=== PATIENT | female | born 1995 | race Two or more races ===

== ENCOUNTER 2018-01-26 13:58 | Emergency (ER) | payer SELFPAY ==
[2018-01-26] MEDS ORDERED: AMOXICILLIN TRIHYDRATE 500 MG CAPSULE PO ONE (15:28)
--- NOTE | 2018-01-26 15:32 | ER Document Report ---
HPI - HPI Patient complains to provider of: r ear pain Onset: Other - 4 days Onset/Duration: Persistent Quality of pain: Achy Pain Level: 3 Context: Patient presents complaining of right ear pain for the past 4 days. Patient does report that she recently had an upper respiratory infection. Patient denies any fever. No drainage from her ear. Associated Symptoms: Earache. denies: Fever Exacerbated by: Denies Relieved by: Denies Similar symptoms previously: Yes Recently seen / treated by doctor: No - ROS ROS below otherwise negative: Yes Systems Reviewed and Negative: Yes All other systems reviewed and negative - CONSTITUTIONAL Constitutional: DENIES: Fever, Chills - EENT EENT: REPORTS: Ear Pain - bilateral - RESPIRATORY Respiratory: DENIES: Coughing - GASTROINTESTINAL Gastrointestinal: DENIES: Nausea, Patient vomiting - DERM Skin Color: Normal Skin Problems: None Past Medical History - General Information source: Patient - Social History Smoking Status: Never Smoker Frequency of alcohol use: None Drug Abuse: None Occupation: None Lives with: Family Family History: Reviewed & Not Pertinent Patient has suicidal ideation: No Patient has homicidal ideation: No EENT Medical History: 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 IN LAST 30 DAYS: No - HEENT HEENT: Atraumatic, Normocephalic, Tympanic Membrane Red - left, Tympanic Membrane Bulging - left. negative: Pharyngeal Exudate, Pharyngeal Tenderness, Pharyngeal Erythema - NECK Neck: Normal Inspection, Supple. negative: Lymphadenopathy-Left, Lymphadenopathy-Right - RESPIRATORY Respiratory: Breath Sounds Normal, No Respiratory Distress - CARDIOVASCULAR Cardiovascular: Regular Rate, Regular Rhythm, No Murmur - BACK Back: Normal Inspection - MUSCULOSKELETAL/EXTREMETIES Musculoskeletal/Extremeties: JACQUES BARNHART - NEURO Level of Consciousness: Awake, Alert, Appropriate Motor/Sensory: No Motor Deficit - DERM Integumentary: Warm, Dry, No Rash Course - Vital Signs Vital signs: Temp Pulse Resp BP Pulse Ox 99.0 F 66 20 117/64 97 01/26/18 14:06 01/26/18 14:06 01/26/18 14:06 01/26/18 14:06 01/26/18 14:06 Discharge - Discharge Clinical Impression: Otitis media Qualifiers: Otitis media type: unspecified Chronicity: acute Qualified Code(s): H66.90 - Otitis media, unspecified, unspecified ear Condition: Stable Disposition: HOME, SELF-CARE Instructions: Amoxicillin ([facility]), Otitis Media ([facility]) Additional Instructions: Return immediately for any new or worsening symptoms Followup with your primary care provider, call tomorrow to make a followup appointment Prescriptions: Amoxicillin 500 mg PO TID #30 tablet Naproxen [Naprosyn 250 Nmg Tablet] 1 tab PO BID #14 tablet Referrals: [facility] [Provider Group] - Follow up as needed [facility] [Provider Group] - Follow up as needed
[2018-01-26 16:03] VITALS: BP 116/54
== END 2018-01-26 16:12 | disposition home or self-care (01) ==
LOC: ER 13:58
DX: H66.90 Otitis media, unspecified, unspecified ear (principal); Z98.890 Other specified postprocedural states
CPT/HCPCS: 99282

== ENCOUNTER 2018-01-28 20:11 | Emergency (ER) | payer SELFPAY ==
[2018-01-28 20:19] VITALS: BP 108/62
--- NOTE | 2018-01-28 20:57 | ER Document Report ---
ED General - General Chief Complaint: Ear Pain Stated Complaint: EAR PAIN Time Seen by Provider: 01/28/18 20:31 Notes: Patient is a 22-year-old female without chronic medical problems who presents with ongoing decreased hearing out of her left ear as well as fullness to the left ear. The patient was seen in the emergency room 2 days ago, diagnosed with right-sided otitis media but notes that despite taking antibiotics and naproxen her symptoms to the left ear have not improved. She states this did start after she came back from [place] on a flight. She states that it is a dull, throbbing, constant discomfort to the left ear. Nothing improves or worsens her pain. She denies history of similar symptoms in the past. She has not yet followed up with her primary care doctor. She denies anything is new or different about her symptoms today other than that they have failed to resolve. TRAVEL OUTSIDE OF THE [place] IN LAST 30 DAYS: Yes COUNTRY TRAVELED TO/FROM: [facility] - Related Data Allergies/Adverse Reactions: No Known Allergies Allergy (Unverified 01/26/18 14:00) Past Medical History - General Information source: Patient - Social History Smoking Status: Never Smoker Chew tobacco use (# tins/day): No Frequency of alcohol use: None Drug Abuse: None Lives with: Spouse/Significant other Family History: Reviewed & Not Pertinent Patient has suicidal ideation: No Patient has homicidal ideation: No Renal/ Medical History: Denies: Hx Peritoneal Dialysis Past Surgical History: Reports: Other - ear Review of Systems - Review of Systems Notes: Constitutional: Negative for fever. HENT: Positive for left ear fullness and hearing loss. Eyes: Negative for visual changes. Cardiovascular: Negative for chest pain. Respiratory: Negative for shortness of breath. Gastrointestinal: Negative for abdominal pain, vomiting or diarrhea. Genitourinary: Negative for dysuria. Musculoskeletal: Negative for back pain. Skin: Negative for rash. Neurological: Negative for headaches, weakness or numbness. 10 point ROS negative except as marked above and in HPI. Physical Exam - Vital signs Vitals: Temp Pulse Resp BP Pulse Ox 98.5 F 71 18 108/62 98 01/28/18 20:18 01/28/18 20:18 01/28/18 20:18 01/28/18 20:18 01/28/18 20:18 Interpretation: Normal Notes: PHYSICAL EXAMINATION: GENERAL: Well-appearing, well-nourished and in no acute distress. HEAD: Atraumatic, normocephalic. EYES: Pupils equal round and reactive to light, extraocular movements intact, sclera anicteric, conjunctiva are normal. ENT: nares patent, oropharynx clear without exudates. Right TM with purulent drainage and left TM is clear without any bulging or erythema. Moist mucous membranes. NECK: Normal range of motion, supple without lymphadenopathy LUNGS: Breath sounds clear to auscultation bilaterally and equal. No wheezes rales or rhonchi. HEART: Regular rate and rhythm without murmurs ABDOMEN: Soft, nontender, normoactive bowel sounds. No guarding, no rebound. No masses appreciated. EXTREMITIES: Normal range of motion, no pitting or edema. No cyanosis. NEUROLOGICAL: No focal neurological deficits. Moves all extremities spontaneously and on command. PSYCH: Normal mood, normal affect. SKIN: Warm, Dry, normal turgor, no rashes or lesions noted. Course - Re-evaluation Re-evalutation: 01/28/18 20:57 Patient presents with ongoing left ear discomfort and fullness as well as hearing loss. She continues to have an obvious right otitis media but states that the site is actually not uncomfortable as only her left side. There is no evidence of tympanic rupture, infection or mastoiditis on examination. She is otherwise extremely well in appearance. Suspect that her symptoms are likely secondary to pressure during her most recent flight and should resolve over time. I have examined this patient that it is likely secondary to her recent transatlantic flight and that if she is not having improvement within the next several days she will need follow-up with ENT. At this time will discharge with return precautions and follow-up recommendations. Verbal discharge instructions given a the bedside and opportunity for questions given. Medication warnings reviewed. Patient is in agreement with this plan and has verbalized understanding of return precautions and the need for primary care follow-up in the next 24-72 hours. - Vital Signs Vital signs: Temp Pulse Resp BP Pulse Ox 98.5 F 71 18 108/62 98 01/28/18 20:18 01/28/18 20:18 01/28/18 20:18 01/28/18 20:18 01/28/18 20:18 Discharge - Discharge Clinical Impression: Left ear pain Otitis media Qualifiers: Otitis media type: suppurative Chronicity: acute Laterality: right Recurrence: recurrent Spontaneous tympanic membrane rupture: without spontaneous rupture Qualified Code(s): H66.004 - Acute suppurative otitis media without spontaneous rupture of ear drum, recurrent, right ear Additional Instructions: Your left ear pain and loss of hearing is likely secondary to the pressure that he sustained while on a plane flight back to [place]. This should hopefully resolve in the next several days. Continue to take the antibiotics that were prescribed on your most recent visit as he still having infection in your right ear. If you are not having resolution of your hearing loss and fullness of the left ear in the next 3-4 days I would encourage you to follow-up with an ear nose and throat physician. Return for any additional concerns you may have. Referrals: MARLEY BRAY, [ASSOCIATE] - Follow up as needed
== END 2018-01-28 21:06 | disposition home or self-care (01) ==
LOC: ER 20:11
DX: H92.02 Otalgia, left ear (principal); H91.92 Unspecified hearing loss, left ear; H66.004 Acute suppurative otitis media without spontaneous rupture of ear drum, recurrent, right ear
CPT/HCPCS: 99282

== ENCOUNTER 2018-02-12 00:48 | Emergency (ER) | payer SELFPAY ==
[2018-02-12 00:56] VITALS: BP 120/70
[2018-02-12] MEDS ORDERED: IBUPROFEN 600 MG TABLET PO ONE (02:23)
[2018-02-12] MEDS ORDERED: CIPROFLOXACIN HCL/DEXAMETH OTIC DROP 7.5 ML AD ONE (02:23)
[2018-02-12] MEDS ORDERED: ACETAMINOPHEN 325 MG TABLET PO ONE (02:23)
[2018-02-12] MEDS ORDERED: AMOXICILLIN TRIHYDRATE 500 MG CAPSULE PO ONE (02:23)
[2018-02-12] MEDS ORDERED: TRAMADOL HCL 50 MG TABLET PO ONE (02:24)
--- NOTE | 2018-02-12 02:26 | ER Document Report ---
ED General - General Chief Complaint: Ear Pain Stated Complaint: SORE THROAT/EAR PAIN Time Seen by Provider: 02/12/18 01:41 Notes: Patient is a 22-year-old female without chronic medical problems seen several weeks ago for a right sided ear infection with associated pain who presents with 3-4 days of progressively worsening pain to the right ear as well as drainage of pus from the right ear. Patient describes a dull, throbbing, constant pain to the right ear with associated pain over the right maxillary sinus and the her throat. She states that she has been taking amoxicillin that was prescribed without any improvement of her symptoms. Nothing worsens her symptoms. She has not followed up with her general doctor regarding today's concerns. She denies any headache, weakness, numbness, confusion or constitutional symptoms. No fever. TRAVEL OUTSIDE OF THE [place] IN LAST 30 DAYS: No COUNTRY TRAVELED TO/FROM: [facility] - Related Data Allergies/Adverse Reactions: No Known Allergies Allergy (Verified 02/12/18 00:51) Past Medical History - General Information source: Patient - Social History Smoking Status: Never Smoker Frequency of alcohol use: None Drug Abuse: None Lives with: Spouse/Significant other Family History: Reviewed & Not Pertinent Renal/ Medical History: Denies: Hx Peritoneal Dialysis Past Surgical History: Reports: Other - ear Review of Systems - Review of Systems Notes: Constitutional: Negative for fever. HENT: Positive for right ear pain and drainage Eyes: Negative for visual changes. Cardiovascular: Negative for chest pain. Respiratory: Negative for shortness of breath. Gastrointestinal: Negative for abdominal pain, vomiting or diarrhea. Genitourinary: Negative for dysuria. Musculoskeletal: Negative for back pain. Skin: Negative for rash. Neurological: Negative for headaches, weakness or numbness. 10 point ROS negative except as marked above and in HPI. Physical Exam - Vital signs Vitals: Temp Pulse Resp BP Pulse Ox 99.2 F 65 16 120/70 99 02/12/18 00:55 02/12/18 00:55 02/12/18 00:55 02/12/18 00:55 02/12/18 00:55 Interpretation: Normal Notes: PHYSICAL EXAMINATION: GENERAL: Well-appearing, well-nourished and in no acute distress. HEAD: Atraumatic, normocephalic. EYES: Pupils equal round and reactive to light, extraocular movements intact, sclera anicteric, conjunctiva are normal. ENT: nares patent, oropharynx clear without exudates. The right ear is draining yellowish fluid. There is erythema to the external ear canal. TM is bulging with a purulent effusion. Left TM clear NECK: Normal range of motion, supple without lymphadenopathy LUNGS: Breath sounds clear to auscultation bilaterally and equal. No wheezes rales or rhonchi. HEART: Regular rate and rhythm without murmurs ABDOMEN: Soft, nontender, normoactive bowel sounds. No guarding, no rebound. No masses appreciated. EXTREMITIES: Normal range of motion, no pitting or edema. No cyanosis. NEUROLOGICAL: No focal neurological deficits. Moves all extremities spontaneously and on command. PSYCH: Normal mood, normal affect. SKIN: Warm, Dry, normal turgor, no rashes or lesions noted. Course - Re-evaluation Re-evalutation: 02/12/18 02:54 Presentation is most consistent with an acute otitis media with associated otitis externa. Clinical history as well as exam is most consistent with this diagnosis. Based on history and examination do not suspect an acute meningitis , encephalitis, peritonsillar abscess, or retropharyngeal abscess. Patient is otherwise well in appearance, no acute distress. Vitals otherwise within normal limits. The patient will be started on Augmentin twice daily for 10 days as well as Ciprodex drops. At this time will discharge with return precautions and follow-up recommendations. Verbal discharge instructions given a the bedside to the parents and opportunity for questions given. Medication warnings reviewed. Patient is in agreement with this plan and has verbalized understanding of return precautions and the need for primary care follow-up in the next 24-72 hours. - Vital Signs Vital signs: Temp Pulse Resp BP Pulse Ox 99.2 F 65 16 120/70 99 02/12/18 00:55 02/12/18 00:55 02/12/18 00:55 02/12/18 00:55 02/12/18 00:55 Discharge - Discharge Clinical Impression: Right otitis externa Qualifiers: Otitis externa type: other infective Chronicity: acute Qualified Code(s): H60.391 - Other infective otitis externa, right ear Right otitis media Qualifiers: Otitis media type: suppurative Chronicity: acute Recurrence: recurrent Spontaneous tympanic membrane rupture: without spontaneous rupture Qualified Code(s): H66.004 - Acute suppurative otitis media without spontaneous rupture of ear drum, recurrent, right ear Condition: Good Disposition: HOME, SELF-CARE Additional Instructions: You were seen today for ear pain and have an acute ear infection. Please take the antibiotic that has been prescribed until it is completed even if you are feeling better before you have finished all the antibiotics. Please also insert 3 drops of the eardrops that you were given today anterior ear 3 times daily for the next 7 days. For your pain: Take ibuprofen 600 mg and acetaminophen 1000 mg every 6 hours together as needed for pain. You may use the tramadol that has been prescribed for pain not controlled by Tylenol and ibuprofen. Return if you have worsening of your pain, loss of hearing in the affected ear, worsening facial pain, headaches, pass out, or any other symptoms that are worrisome to you. Prescriptions: Amox Tr/Potassium Clavulanate [Augmentin 875-125 Tablet] 1 tab PO BID 10 Days tablet Tramadol HCl 50 mg PO Q6H PRN #10 tablet PRN Reason: Severe Pain
[2018-02-12] MEDS ORDERED: AMOXICILLIN TR/POT CLAVULANATE 500-125 MG TAB PO ONE (02:27)
== END 2018-02-12 02:40 | disposition home or self-care (01) ==
LOC: ER 00:48
DX: H60.391 Other infective otitis externa, right ear (principal); H66.004 Acute suppurative otitis media without spontaneous rupture of ear drum, recurrent, right ear; J34.89 Other specified disorders of nose and nasal sinuses; J02.9 Acute pharyngitis, unspecified
CPT/HCPCS: 99282; J3490

== ENCOUNTER 2018-11-16 21:51 | Inpatient (IN) | payer MEDICAID ==
[2018-11-16] MEDS ORDERED: DINOPROSTONE 10 MG VAGINAL INSERT.SR PV ONE (22:12)
[2018-11-16] MEDS ORDERED: ACETAMINOPHEN 325 MG TABLET PO PRN (22:12)
[2018-11-16] MEDS ORDERED: RINGERS SOLUTION,LACTATED 300 ML IV ONE (22:12)
[2018-11-16] MEDS ORDERED: MAG HYDROX/AL HYDROX/SIMETH SUSP 30 ML UDCUP PO PRN (22:12)
[2018-11-16] MEDS ORDERED: ZOLPIDEM TARTRATE 5 MG TABLET PO PRN (22:12)
[2018-11-16] MEDS ORDERED: RINGERS SOLUTION,LACTATED 1,000 ML IV PRN (22:12)
[2018-11-16] MEDS ORDERED: ZOLPIDEM TARTRATE 5 MG TABLET ONE (22:53)
[2018-11-16] MEDS ORDERED: DINOPROSTONE 10 MG VAGINAL INSERT.SR ONE (22:53)
[2018-11-16 22:58] LABS: ABSOLUTE LYMPHOCYTES (AUTO) 1.5 10^3/uL (0.5-4.7); ABSOLUTE MONOCYTES (AUTO) 0.5 10^3/uL (0.1-1.4); ABSOLUTE NEUT (AUTO) 5.9 10^3/uL (1.7-8.2); BASOPHILS % (AUTO) 0.5 % (0-2); EOSINOPHILS % (AUTO) 0.5 % (0-6); HEMATOCRIT 29.3 % (36.0-47.0); HEMOGLOBIN 9.7 g/dL (12.0-15.5); MEAN CORPUSCULAR HEMOGLOBIN 25.5 pg (27.0-33.4); MEAN CORPUSCULAR VOLUME 77 fl (80-97); MONOCYTES % (AUTO) 6.7 % (3-13); PLATELET COUNT 274 10^3/uL (150-450); RED BLOOD COUNT 3.79 10^6/uL (3.72-5.28); RED CELL DISTRIBUTION WIDTH 13.2 % (11.5-14.0); SEGMENTED NEUTROPHILS % (AUTO) 73.3 % (42-78); TOTAL CELLS COUNTED % (AUTO) 100 %
[2018-11-16 23:01] LABS: APPEARANCE,URINE SLIGHTLY-CLOUDY; BILIRUBIN,URINE NEGATIVE (NEGATIVE); COLOR,URINE YELLOW; GLUCOSE, URINE NEGATIVE (NEGATIVE); KETONES,URINE TRACE mg/dL (NEGATIVE); LEUKOCYTE ESTERASE,URINE TRACE (NEGATIVE); NITRITE,URINE NEGATIVE (NEGATIVE); PROTEIN,URINE 30 mg/dL (NEGATIVE); URINE SPECIFIC GRAVITY 1.024; UROBILINOGEN,URINE NEGATIVE mg/dL (<2.0)
[2018-11-16] MEDS ORDERED: ZOLPIDEM TARTRATE 5 MG TABLET PO ONE (23:02)
[2018-11-16] MEDS ORDERED: URSODIOL 300 MG CAPSULE PO ONE (23:15)
[2018-11-16 23:17] LABS: URINE AMPHETAMINES SCREEN NEGATIVE; URINE BARBITURATES SCREEN NEGATIVE; URINE BENZODIAZEPINES SCREEN NEGATIVE; URINE COCAINE SCREEN NEGATIVE; URINE MARIJUANA (THC) SCREEN NEGATIVE; URINE METHADONE SCREEN NEGATIVE; URINE PHENCYCLIDINE SCREEN NEGATIVE
--- NOTE | 2018-11-17 00:25 | Admission Physical ---
Datetime Report Generated by CPN: 11/17/2018 00:25 CURRENT ADMISSION Chief Complaint: Scheduled Induction of Labor Indication for Induction: Other Indication for Induction- Other: Cholestasis Admit Impression : , Intrauterine Admit Plan: Admit to Unit; Initiate Labor Induction Protocol ALLERGIES Medication Allergies: No Medication Allergies: No Known Allergies (11/16/2018) Latex: No Latex Allergies OBSTETRICAL HISTORY EDC: 12/15/2018 00:00 : 2 Para: 1 Term: 1 Livin Gestational Diabetes: No Rh Sensitization: No Incompetent Cervix: No ETTA: No Infertility: No ART Treatment: No Uterine Anomaly: No IUGR: No Hx Previous C/S: No Macrosomia: No Hx Loss/Stillborn: No PIH: No Hx : No Placenta Previa/Abruption: No Depression/PP Depression: No PTL/PROM: No Post Hemorrhage: No SEE RECORDS Alcohol: No Marijuana : No Cocaine: No Other Illicit Drugs: No Cigarettes: Never Smoker. 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14 INFECTIOUS HISTORY Gonorrhea: No Genital Herpes: No Chlamydia: No Tuberculosis: No Syphilis: No Hepatitis: No HIV/AIDS Exposure: No Rash or Viral Illness: No HPV: No PHYSICAL EXAM General: Normal HEENT: Normal Neurologic: Normal Thyroid: Normal Heart: Normal Lungs: Normal Breast: Normal Back: Normal Abdomen: Normal Genitourinary Exam: Normal Extremities: Normal DTRs: Normal Pelvic Type: Adequate Vital Signs: Reviewed; Within Normal Limits VAGINAL EXAM Dilatation: 1 Effacement: 50 Station: ballotable Contraction Comments: irregular MEMBRANES Membranes: Intact FETUS A EGA: 36.0 Monitoring: External US FHR- Baseline: 120s Variability: Moderate 6-25bpm Accelerations: 15X15 Decelerations: None FHR Category: Category I Admit Comment: Pt has cholestasis of ; GBS status pending--will give prophylaxsis if no results by morning PLANS FOR LABOR AND DELIVERY Labor and Delivery: None Pain Management: Medications; Epidural Feeding Preference: Formula Benefit of Breast Feed Discussed: Yes Circumcision: N/A INFORMED CONSENT Signature: with User ID: [email or web address]
[2018-11-17] MEDS: URSODIOL 300 MG CAPSULE PO SCH ×2 (09:14→18:08)
[2018-11-17 11:54] LABS: ABSOLUTE EOSINOPHILS # (AUTO) 0.1 10^3/uL (0.0-0.6); ABSOLUTE LYMPHOCYTES (AUTO) 1.5 10^3/uL (0.5-4.7); ABSOLUTE MONOCYTES (AUTO) 0.4 10^3/uL (0.1-1.4); ABSOLUTE NEUT (AUTO) 4.9 10^3/uL (1.7-8.2); BASOPHILS % (AUTO) 0.4 % (0-2); EOSINOPHILS % (AUTO) 0.9 % (0-6); HEMATOCRIT 29.8 % (36.0-47.0); HEMOGLOBIN 9.8 g/dL (12.0-15.5); MEAN CORPUSCULAR HEMOGLOBIN 25.2 pg (27.0-33.4); MEAN CORPUSCULAR HGB CONC 32.9 g/dL (32.0-36.0); MEAN CORPUSCULAR VOLUME 77 fl (80-97); MONOCYTES % (AUTO) 6.2 % (3-13); PLATELET COUNT 258 10^3/uL (150-450); RED BLOOD COUNT 3.89 10^6/uL (3.72-5.28); RED CELL DISTRIBUTION WIDTH 13.3 % (11.5-14.0); SEGMENTED NEUTROPHILS % (AUTO) 71.5 % (42-78); TOTAL CELLS COUNTED % (AUTO) 100 %; WHITE BLOOD COUNT 6.9 10^3/uL (4.0-10.5)
[2018-11-17 12:17] LABS: ALANINE AMINOTRANSFERASE 548 U/L (9-52); ALBUMIN 3.4 g/dL (3.5-5.0); ALKALINE PHOSPHATASE 212 U/L (38-126); ANION GAP 11 (5-19); ASPARTATE AMINO TRANSFERASE 482 U/L (14-36); BILIRUBIN,DIRECT 0.4 mg/dL (0.0-0.4); BILIRUBIN,TOTAL 0.6 mg/dL (0.2-1.3); BLOOD UREA NITROGEN 13 mg/dL (7-20); CALCIUM 9.5 mg/dL (8.4-10.2); CARBON DIOXIDE 22 mmol/L (22-30); CHLORIDE 106 mmol/L (98-107); GLUCOSE 85 mg/dL (75-110); POTASSIUM 3.8 mmol/L (3.6-5.0); SODIUM 139.2 mmol/L (137-145); TOTAL PROTEIN 6.4 g/dL (6.3-8.2)
[2018-11-17] MEDS ORDERED: DINOPROSTONE 10 MG VAGINAL INSERT.SR ONE (12:59)
[2018-11-17] MEDS ORDERED: DINOPROSTONE 10 MG VAGINAL INSERT.SR PV ONE (13:01)
[2018-11-18] MEDS ORDERED: MISOPROSTOL 0.1 MG TABLET PV ONE
[2018-11-18] MEDS ORDERED: MISOPROSTOL 0.1 MG TABLET ONE (00:37)
[2018-11-18] MEDS: URSODIOL 300 MG CAPSULE PO SCH ×4 (00:41→19:19)
[2018-11-18] MEDS ORDERED: OXYTOCIN/NORMAL SALINE 20 UNIT/1,000 ML RTUINJ IV PRN ×2 (04:47→11:28)
[2018-11-18] MEDS ORDERED: OXYTOCIN/NORMAL SALINE 20 UNIT/1,000 ML RTUINJ ONE (04:48)
[2018-11-18] MEDS ORDERED: NALBUPHINE HCL INJ 10 MG/1 ML AMPULE ONE (05:16)
[2018-11-18] MEDS ORDERED: PROMETHAZINE HCL INJ 25 MG/1 ML VIAL ONE (05:16)
[2018-11-18 06:30] LABS: ABSOLUTE EOSINOPHILS # (AUTO) 0.1 10^3/uL (0.0-0.6); ABSOLUTE LYMPHOCYTES (AUTO) 1.7 10^3/uL (0.5-4.7); ABSOLUTE MONOCYTES (AUTO) 0.6 10^3/uL (0.1-1.4); ABSOLUTE NEUT (AUTO) 5.6 10^3/uL (1.7-8.2); BASOPHILS % (AUTO) 0.5 % (0-2); HEMATOCRIT 28.3 % (36.0-47.0); HEMOGLOBIN 9.5 g/dL (12.0-15.5); LYMPHOCYTES % (AUTO) 20.8 % (13-45); MEAN CORPUSCULAR HEMOGLOBIN 25.7 pg (27.0-33.4); MEAN CORPUSCULAR HGB CONC 33.6 g/dL (32.0-36.0); MEAN CORPUSCULAR VOLUME 77 fl (80-97); MONOCYTES % (AUTO) 7.1 % (3-13); PLATELET COUNT 248 10^3/uL (150-450); RED CELL DISTRIBUTION WIDTH 13.4 % (11.5-14.0); SEGMENTED NEUTROPHILS % (AUTO) 70.6 % (42-78); TOTAL CELLS COUNTED % (AUTO) 100 %
[2018-11-18 06:45] LABS: ALANINE AMINOTRANSFERASE 434 U/L (9-52); ALBUMIN 3.2 g/dL (3.5-5.0); ALKALINE PHOSPHATASE 207 U/L (38-126); ANION GAP 10 (5-19); ASPARTATE AMINO TRANSFERASE 287 U/L (14-36); BILIRUBIN,DIRECT 0.4 mg/dL (0.0-0.4); BILIRUBIN,TOTAL 0.4 mg/dL (0.2-1.3); BLOOD UREA NITROGEN 12 mg/dL (7-20); CALCIUM 9.4 mg/dL (8.4-10.2); CARBON DIOXIDE 20 mmol/L (22-30); CHLORIDE 109 mmol/L (98-107); GLUCOSE 78 mg/dL (75-110); POTASSIUM 4.1 mmol/L (3.6-5.0); SODIUM 138.8 mmol/L (137-145)
[2018-11-18 06:46] LABS: TOTAL PROTEIN 6.1 g/dL (6.3-8.2); URIC ACID 7.1 mg/dL (2.5-6.2)
[2018-11-18] MEDS ORDERED: PHENYLEPHRINE HCL INJ/PF 10 MG/1 ML SDV ONE (09:25)
[2018-11-18] MEDS ORDERED: FENTANYL/BUPIVACAINE/NS/PF 300 MCG/150 ML RTUINJ EPI ONE (09:26)
[2018-11-18] MEDS ORDERED: BUPIVACAINE HCL 0.25 % INJ/PF (2.5 MG/1 ML) 30 ML VIAL ONE (09:26)
[2018-11-18] MEDS ORDERED: FENTANYL CITRATE INJ/PF 100 MCG/2 ML AMPUL ONE (09:26)
[2018-11-18] MEDS ORDERED: EPHEDRINE SULFATE INJ 50 MG/1 ML AMPULE ONE (09:26)
[2018-11-18] MEDS ORDERED: LIDOCAINE 1.5%/EPINEPHRINE INJ 5 ML AMP ONE (09:27)
[2018-11-18] MEDS ORDERED: OXYTOCIN 10 UNIT/ML VIAL ONE (10:32)
[2018-11-18] MEDS ORDERED: LIDOCAINE 1% INJ-PF (10 MG/ML) 30 ML SDV ONE (10:32)
[2018-11-18] MEDS ORDERED: MISOPROSTOL 0.2 MG TABLET ONE (10:32)
[2018-11-18] MEDS ORDERED: METHYLERGONOVINE MALEATE INJ/PF 0.2 MG/1 ML AMPULE ONE (10:49)
[2018-11-18] MEDS ORDERED: LOPERAMIDE HCL 2 MG CAPSULE ONE (10:54)
[2018-11-18] MEDS ORDERED: CARBOPROST TROMETHAMINE INJ 250 MCG/1 ML AMPULE ONE (10:54)
[2018-11-18] MEDS ORDERED: IBUPROFEN 800 MG TABLET ONE (11:03)
[2018-11-18] MEDS ORDERED: PROMETHAZINE HCL 25 MG SUPP.RECT PR PRN (11:28)
[2018-11-18] MEDS ORDERED: DIPH/PERTUSS(ACELL)/TETANUS VAC/PF 0.5 ML SYR (>=10YO) IM PRN (11:28)
[2018-11-18] MEDS ORDERED: GLYCERIN/WITCH HAZEL LEAF 1 EACH MED..PAD TP PRN (11:28)
[2018-11-18] MEDS ORDERED: DIPHENHYDRAMINE HCL 25 MG CAPSULE PO PRN (11:28)
[2018-11-18] MEDS ORDERED: BENZOCAINE/MENTHOL AEROSOL SPRAY 56 ML TOP PRN (11:28)
[2018-11-18] MEDS ORDERED: DIBUCAINE 1% OINTMENT 56 GM TP PRN (11:28)
[2018-11-18] MEDS ORDERED: PROMETHAZINE HCL INJ 25 MG/1 ML VIAL IV PRN (11:28)
[2018-11-18] MEDS ORDERED: ACETAMINOPHEN WITH CODEINE #3 TABLET PO PRN ×2 (11:28)
[2018-11-18] MEDS ORDERED: ZOLPIDEM TARTRATE 5 MG TABLET PO PRN (11:28)
[2018-11-18] MEDS ORDERED: PROMETHAZINE HCL 25 MG TABLET PO PRN (11:28)
[2018-11-18] MEDS ORDERED: PSEUDOEPHEDRINE HCL 30 MG TABLET PO PRN (11:28)
[2018-11-18] MEDS ORDERED: MEASLES,MUMPS&RUBELLA VACC/PF 0.5 ML VIAL SUBCUT PRN (11:28)
[2018-11-18] MEDS ORDERED: NA PHOS,M-B/NA PHOS,DI-BA (ADULT) 133 ML ENEMA PR PRN (11:28)
[2018-11-18] MEDS ORDERED: ACETAMINOPHEN 650 MG SUPP.RECT PR PRN (11:28)
[2018-11-18] MEDS: IBUPROFEN 800 MG TABLET PO SCH (19:17)
[2018-11-18] MEDS: FERROUS SULFATE 325 MG TABLET PO SCH (19:17)
[2018-11-18] MEDS: DOCUSATE SODIUM 100 MG CAPSULE PO SCH (19:17)
[2018-11-18] MEDS: FAMOTIDINE 20 MG TABLET PO SCH (21:16)
[2018-11-19] MEDS: IBUPROFEN 800 MG TABLET PO SCH ×3 (02:45→17:13)
[2018-11-19 08:21] LABS: HEMATOCRIT 25.7 % (36.0-47.0); HEMOGLOBIN 8.3 g/dL (12.0-15.5); MEAN CORPUSCULAR HEMOGLOBIN 25.2 pg (27.0-33.4); MEAN CORPUSCULAR HGB CONC 32.1 g/dL (32.0-36.0); MEAN CORPUSCULAR VOLUME 78 fl (80-97); PLATELET COUNT 221 10^3/uL (150-450); RED BLOOD COUNT 3.28 10^6/uL (3.72-5.28); RED CELL DISTRIBUTION WIDTH 13.6 % (11.5-14.0)
[2018-11-19] MEDS: SENNOSIDES/DOCUSATE 8.6-50 MG 1 EACH TABLET PO SCH (09:41)
[2018-11-19] MEDS: FAMOTIDINE 20 MG TABLET PO SCH ×2 (09:41→21:22)
[2018-11-19] MEDS: DOCUSATE SODIUM 100 MG CAPSULE PO SCH ×2 (09:41→17:12)
[2018-11-19] MEDS: PRENATAL VITAMIN W DHA CAPSULE PO SCH (09:41)
[2018-11-19] MEDS: FERROUS SULFATE 325 MG TABLET PO SCH ×2 (09:41→17:13)
[2018-11-19] MEDS: URSODIOL 300 MG CAPSULE PO SCH ×3 (09:46→17:15)
[2018-11-19] MEDS ORDERED: HYDROXYZINE PAMOATE 50 MG CAPSULE PO PRN (09:51)
--- NOTE | 2018-11-19 10:38 | PDOC PROGRESS REPORT ---
Subjective-OB Progress Note for:: 11/19/18 Subjective: reports bleeding slowing, pain controlled with current meds, denies needs Physical Exam (OB) Vital Signs: Temp Pulse Resp BP Pulse Ox 98.0 F 49 L 18 121/69 98 11/19/18 07:38 11/19/18 07:38 11/19/18 07:38 11/19/18 07:38 11/18/18 20:38 Intake & Output 11/18/18 11/19/18 11/20/18 06:59 06:59 06:59 Intake Total 1000 Balance 1000 - Abdomen Description: Soft Hernia Present: No Fundal Description: Firm, Midline Fundal Height: u/u - u/2 - Abdominal Distension: No distension Tenderness: Nontender - Extremities Lower extremities: Cate's sign - neg Calf: Normal, Nontender Objective-Diagnostic Laboratory: 11/19/18 07:33 11/18/18 06:24 11/19/18 07:33 WBC 11.0 H RBC 3.28 L Hgb 8.3 L Hct 25.7 L MCV 78 L MCH 25.2 L MCHC 32.1 RDW 13.6 Plt Count 221 Assessment and Plan(PN) - Assessment and Plan (1) Cholestasis during Is this a current diagnosis for this admission?: Yes (2) Encounter for induction of labor Is this a current diagnosis for this admission?: Yes (3) Normal vaginal delivery Is this a current diagnosis for this admission?: Yes - Time Spent with Patient Time with patient: Less than 15 minutes Medications reviewed and adjusted accordingly: Yes - Disposition Anticipated Discharge: Home Within: within 24 hours
[2018-11-20] MEDS: IBUPROFEN 800 MG TABLET PO SCH ×3 (02:24→18:15)
[2018-11-20 05:34] LABS: ALANINE AMINOTRANSFERASE 195 U/L (9-52); ALBUMIN 2.7 g/dL (3.5-5.0); ALKALINE PHOSPHATASE 157 U/L (38-126); ANION GAP 8 (5-19); ASPARTATE AMINO TRANSFERASE 61 U/L (14-36); BILIRUBIN,DIRECT 0.2 mg/dL (0.0-0.4); BILIRUBIN,TOTAL 0.2 mg/dL (0.2-1.3); BLOOD UREA NITROGEN 11 mg/dL (7-20); CALCIUM 8.6 mg/dL (8.4-10.2); CARBON DIOXIDE 22 mmol/L (22-30); CHLORIDE 110 mmol/L (98-107); GLUCOSE 74 mg/dL (75-110); SODIUM 139.8 mmol/L (137-145); TOTAL PROTEIN 5.5 g/dL (6.3-8.2); URIC ACID 6.9 mg/dL (2.5-6.2)
[2018-11-20 08:15] VITALS: BP 110/62
--- NOTE | 2018-11-20 09:05 | PDOC DISCHARGE SUMMARY ---
Final Diagnosis Discharge Date: 11/20/18 - Final Diagnosis (1) Cholestasis during Is this a current diagnosis for this admission?: Yes (2) Encounter for induction of labor Is this a current diagnosis for this admission?: Yes (3) Normal vaginal delivery Is this a current diagnosis for this admission?: Yes Discharge Data - Discharge Medication Home Medications: Acetaminophen [Tylenol 325 mg Tablet] 650 mg PO Q4HP PRN 11/16/18 Calcium Carbonate [Tums] 200 mg PO PRN PRN 11/16/18 Melatonin 1 mg SL PRN PRN 11/16/18 Vits96/Iron Fum/Folic [ Tablet] 1 each PO DAILY 11/16/18 Reason(s) for Admission: Induction of Labor, Obstetric Complications Procedures: NST Intrapartum Procedure(s): Spontaneous Vaginal Delivery - Diagnosis Test Laboratory: Temp Pulse Resp BP Pulse Ox 98.0 F 53 L 16 110/62 100 11/20/18 07:57 11/20/18 07:57 11/20/18 07:57 11/20/18 07:57 11/20/18 07:57 11/16/18 11/16/18 11/17/18 22:00 22:40 11:38 RBC 3.79 3.89 Hgb 9.7 L 9.8 L Hct 29.3 L 29.8 L Urine Opiates Screen NEGATIVE 11/18/18 11/19/18 06:24 07:33 RBC 3.70 L 3.28 L Hgb 9.5 L 8.3 L Hct 28.3 L 25.7 L Urine Opiates Screen - Discharge information/Instructions Discharge Activity: Activity As Tolerated, Pelvic Rest Discharge Diet: Regular Disposition: HOME, SELF-CARE Follow up with: [facility] in: 4, Weeks
[2018-11-20] MEDS: SENNOSIDES/DOCUSATE 8.6-50 MG 1 EACH TABLET PO SCH (10:47)
[2018-11-20] MEDS: PRENATAL VITAMIN W DHA CAPSULE PO SCH (10:48)
[2018-11-20] MEDS: DOCUSATE SODIUM 100 MG CAPSULE PO SCH ×2 (10:48→18:15)
[2018-11-20] MEDS: FERROUS SULFATE 325 MG TABLET PO SCH ×2 (10:48→18:15)
[2018-11-20] MEDS: FAMOTIDINE 20 MG TABLET PO SCH (10:48)
[2018-11-20] MEDS: URSODIOL 300 MG CAPSULE PO SCH ×3 (10:51→18:15)
--- NOTE | 2018-11-27 15:06 | Delivery Summary ---
Del Sum A-C Datetime Report Generated by CPN: 11/27/2018 15:06 DELIVERY PERSONNEL DELIVERY PERSONNEL: [id number] Delivery Doctor:: Gabi Cota MD Labor and Delivery Nurse:: Marcia Leary RNclay processing factory worker Nurse:: DENISE Silva Wood Cabinetmaker:: Dr. Gentry Rubio Bee Tender/MUSEUM LIBRARIAN: Kaitlynn Patelaneda, ST MATERNAL INFORMATION Delivery Anesthesia: Epidural Medications After Delivery: Pitocin Drip 20 Units/1000ml NSS; Methergine 0.2mg IM; Cytotec 1000mcg Per Rectum/Vagina Estimated Blood Loss (ml): 600 Maternal Complications: Precipitous Labor (<3hrs) Provider Comments: Patient called out to let nursing know she felt pressure and if she was about to have a bowel movement on herself. When examined, vertex was +1 and the was a sliver of cervix left. Loving catheter was removed and patient was allowed to push. Fetus delivered in vertex presentiation over an intact perineum. The was placed on the maternal abdomen, cord was doubly clamped and cut after 2 mins. Cord blood was collected. Intravenous bolus of IV pitocin was given after delivery of fetus delivered. Fundal massage was performed for a normal intact placenta with 3VC. There was a signifcant amount of blood after delivery of fetus in the amount of 375 after there was initially no bleeding and a firm uterus. Methergine IM and rectal cytotec placed 1000mcg. A clean glove was used to remove all clots from the uterus and vagina. Afterwards, bleeding was satisfactory and patient was cleansed again. The patient tolerated the procedure well. LABOR SUMMARY EDC: 12/15/2018 00:00 No. Babies in Womb: 1 Attempted: No Labor Anesthesia: Epidural LABOR INFORMATION Reason for Induction: Other Reason for Induction- Other: Cholestasis Onset of Labor: 11/18/2018 08:14 Complete Dilatation: 11/18/2018 10:38 Cervical Ripening Agents: Cervidil; Cytotec @ Cervical Ripening Agents: Cytotec @ [address] [place] [address] Cervical Ripening Agents: Cervidil Cervical Ripening Agents: Cervidil Oxytocin: Induction Group B Beta Strep: negative Antibiotics # of Doses: 0 Steroids Given: None MEMBRANES Membranes Rupture Method: Artificial Rupture of Membranes: 11/18/2018 08:14 Length of Rupture (hr): -21.55 Amniotic Fluid Color: Clear Amniotic Fluid Amount: Small STAGES OF LABOR Stage 1 hr: 2 Stage 1 min: 24 Stage 2 hr: -23 Stage 2 min: -57 Stage 3 hr: 24 Stage 3 min: 4 Total Time in Labor hr: 2 Total Time in Labor min: 31 VAGINAL DELIVERY Laceration #1: None Laceration Extension #1: N/A Laceration Repair: Not Applicable Sponge Count Correct: N/A Sharps Count Correct: N/A CSECTION DELIVERY Primary Indication: N/A Secondary Indication: N/A CSection Urgency: Emergency BABY A INFORMATION Infant Delivery Date/Time: 11/17/2018 10:41 Method of Delivery: Vaginal Born in Route : No : N/A Forceps: N/A Vacuum Extraction: N/A Shoulder Dystocia : No PRESENTATION/POSITION BABY A Presentation: Cephalic Cephalic Presentation: Vertex Vertex Position: Left Occipital Anterior Breech Presentation: N/A PLACENTA INFORMATION BABY A Placenta Delivery Time : 11/18/2018 10:45 Placenta Method of Delivery: Spontaneous Placenta Status: Delivered SCORES BABY A Heart Rate 1 min: >100 bpm Resp Effort 1 min: Good Cry Reflex Irritability 1 min: Cough or Sneeze or Pulls Away Muscle Tone 1 min: Active Motion Color 1 min: Blue/Pale Resuscitation Effort 1 min: Tactile Stimulation SCORE 1 MIN: 8 Heart Rate 5 min: >100 bpm Resp Effort 5 min: Good Cry Reflex Irritability 5 min: Cough or Sneeze or Pulls Away Muscle Tone 5 min: Active Motion Color 5 min: Body [place], Extremities Blue SCORE 5 MIN: 9 INFORMATION BABY A Gestational Age at Delivery: 36.1 Gestational Status: Late - 34- 36.6 Weeks Outcome : Liveborn Condition : Stable Infant Sex: Female IDENTIFICATION BABY A Verification Date/Time: 11/18/2018 11:24 ID Band Number: [id number] Mother's Name Verified: Yes Infant RN Verifying Infant: H. Gibran, RN and D. Megha, RN WEIGHT/LENGTH BABY A Birthweight (gm): 2425 Weight (lb): 5 Infant Weight (oz): 6 Infant Length (in): 18.00 Infant Length (cm): 45.72 CORD INFORMATION BABY A No. Cord Vessels: 3 Nuchal Cord : N/A Cord Blood Taken: Yes-For Eval (Mom's Blood Type - or O+) Suction: None ASSESSMENT BABY A Infant Complications: None Infant Complications- Other: , transitionally breathing Physical Findings at Delivery: Within Normal Limits Infant Respirations: Appears Normal Skin to Skin: No Wood Cabinetmaker/ALS Called : No Infant Care By: Viraj Cleveland RN Transferred To: Remains with Mother SIGNATURES Signature: with User ID: [email or web address]
== END 2018-11-20 19:30 | disposition home or self-care (01) | DRG 805 ==
LOC: LR 21:51 → 2N 11-18 13:30
PROVIDERS: ADMIT Obstetrics & Gynecology; ATTEND Obstetrics & Gynecology
PROC: 4A1HXCZ Monitoring of Products of Conception, Cardiac Rate, External Approach (ICD-10-PCS; 2018-11-16)
PROC: 10E0XZZ Delivery of Products of Conception, External Approach (ICD-10-PCS; principal; 2018-11-18)
PROC: 10907ZC Drainage of Amniotic Fluid, Therapeutic from Products of Conception, Via Natural or Artificial Opening (ICD-10-PCS; 2018-11-18)
PROC: 3E033VJ Introduction of Other Hormone into Peripheral Vein, Percutaneous Approach (ICD-10-PCS; 2018-11-18)
DX: O26.62 Liver and biliary tract disorders in childbirth (principal); K83.1 Obstruction of bile duct; Z37.0 Single live birth; O60.14X0 Preterm labor third trimester with preterm delivery third trimester, not applicable or unspecified; O62.3 Precipitate labor; Z3A.36 36 weeks gestation of pregnancy
CPT/HCPCS: 36415; 80053; 80307; 81005; 83615; 84550; 85025; 85027; 86592; 86850; 86900; 86901; 90715; J2210; J2300; J2370; J2550; J2590; J3010; J3490

== ENCOUNTER 2019-01-18 20:55 | Emergency (ER) | payer MEDICAID ==
--- NOTE | 2019-01-19 01:06 | ER Document Report ---
ED Medical Screen (RME) - General Chief Complaint: OB Problem (<20wks) Stated Complaint: CONCERN Time Seen by Provider: 01/19/19 01:02 Notes: 23-year-old G3, P2 6-week 2-day female presents to the emergency department after being instructed to from an outside clinic to obtain an ultrasound. Patient had a recent positive test and due to medical reasons that she was going to have an . She went to get an ultrasound today in the clinic had concerns and told her to come to the emergency department to get imaging after having some abdominal pain. She states the pain is epigastric and denies any lower abdominal pain or pelvic pain. She denies any abnormal vaginal bleeding. She has had some white discharge for about 2 days. Exam: Bilateral breath sounds clear to auscultation. Regular cardiac rate and rhythm, S1 and S2 heard, no murmurs I have greeted and performed a rapid initial assessment of this patient. A comprehensive ED assessment and evaluation of the patient, analysis of test results and completion of medical decision making process will be conducted by an additional ED providers. TRAVEL OUTSIDE OF THE [place] IN LAST 30 DAYS: No COUNTRY TRAVELED TO/FROM: [facility] - Related Data Allergies/Adverse Reactions: No Known Allergies Allergy (Verified 11/16/18 23:19) Past Medical History Renal/ Medical History: Denies: Hx Peritoneal Dialysis Past Surgical History: Reports: Other - ear Physical Exam - Vital signs Vitals: Temp Pulse BP Pulse Ox 98.3 F 66 117/50 L 100 01/18/19 21:35 01/18/19 21:35 01/18/19 21:35 01/18/19 21:35 Course - Vital Signs Vital signs: Temp Pulse Resp BP Pulse Ox 98.3 F 66 117/50 L 100 01/18/19 21:35 01/18/19 21:35 01/18/19 21:35 01/18/19 21:35
[2019-01-19 01:40] LABS: ABSOLUTE EOSINOPHILS # (AUTO) 0.1 10^3/uL (0.0-0.6); ABSOLUTE LYMPHOCYTES (AUTO) 2.4 10^3/uL (0.5-4.7); ABSOLUTE MONOCYTES (AUTO) 0.5 10^3/uL (0.1-1.4); ABSOLUTE NEUT (AUTO) 3.8 10^3/uL (1.7-8.2); BASOPHILS % (AUTO) 0.5 % (0-2); EOSINOPHILS % (AUTO) 2.2 % (0-6); HEMATOCRIT 34.1 % (36.0-47.0); HEMOGLOBIN 10.8 g/dL (12.0-15.5); LYMPHOCYTES % (AUTO) 35.3 % (13-45); MEAN CORPUSCULAR HGB CONC 31.6 g/dL (32.0-36.0); MEAN CORPUSCULAR VOLUME 76 fl (80-97); MONOCYTES % (AUTO) 6.8 % (3-13); PLATELET COUNT 300 10^3/uL (150-450); RED BLOOD COUNT 4.49 10^6/uL (3.72-5.28); RED CELL DISTRIBUTION WIDTH 15.7 % (11.5-14.0); SEGMENTED NEUTROPHILS % (AUTO) 55.2 % (42-78); TOTAL CELLS COUNTED % (AUTO) 100 %; WHITE BLOOD COUNT 6.8 10^3/uL (4.0-10.5)
[2019-01-19 01:46] LABS: APPEARANCE,URINE CLEAR; BILIRUBIN,URINE NEGATIVE (NEGATIVE); COLOR,URINE YELLOW; GLUCOSE, URINE NEGATIVE (NEGATIVE); KETONES,URINE NEGATIVE (NEGATIVE); LEUKOCYTE ESTERASE,URINE NEGATIVE (NEGATIVE); NITRITE,URINE NEGATIVE (NEGATIVE); PROTEIN,URINE NEGATIVE (NEGATIVE); URINE SPECIFIC GRAVITY 1.023; UROBILINOGEN,URINE NEGATIVE mg/dL (<2.0)
[2019-01-19 01:54] LABS: ALANINE AMINOTRANSFERASE 84 U/L (9-52); ALBUMIN 4.7 g/dL (3.5-5.0); ALKALINE PHOSPHATASE 74 U/L (38-126); ANION GAP 16 (5-19); ASPARTATE AMINO TRANSFERASE 44 U/L (14-36); BILIRUBIN,DIRECT 0.3 mg/dL (0.0-0.4); BILIRUBIN,TOTAL 0.3 mg/dL (0.2-1.3); BLOOD UREA NITROGEN 15 mg/dL (7-20); CALCIUM 10.2 mg/dL (8.4-10.2); CARBON DIOXIDE 22 mmol/L (22-30); CHLORIDE 103 mmol/L (98-107); GLUCOSE 83 mg/dL (75-110); POTASSIUM 3.7 mmol/L (3.6-5.0); TOTAL PROTEIN 8.2 g/dL (6.3-8.2)
--- NOTE | 2019-01-19 02:42 | RADIOLOGY REPORT (SQ) ---
EXAM DESCRIPTION: US TRANSVAGINAL COMPLETED DATE/TME: 01/19/2019 01:02 CLINICAL HISTORY: 23 years Female, . LMP 12/06/2018 COMPARISON: None. TECHNIQUE: Complete first trimester ultrasound with transvaginal imaging. FINDINGS: Uterus: The uterus measures 10.7 x 6.3 x 5.7 cm. No myometrial masses. Cervical length of 3.0 cm. Gestational sac: There is a possible gestational sac within the endometrium measuring 1.54 cm. pole: Not identified. heart motion: Not identified. Yolk sac: Not identified. Placenta: Not identified. Right ovary: The right ovary measures 3.0 x 1.8 x 2.0 cm. Left ovary: Not identified due to overlying structures. Adnexa: No adnexal masses identified. Free fluid: No free fluid. Duplex imaging: Color and spectral Doppler imaging demonstrates blood flow within the right ovary. IMPRESSION: 1. Possible intrauterine gestational sac identified. If this is a gestational sac the estimated gestational age is 6 weeks, 2 days. No pole identified. Differential considerations include early normal , anembryonic , and pseudogestational sac of ectopic . Close continued clinical, laboratory, and sonographic follow-up recommended.
--- NOTE | 2019-01-19 03:36 | ER Document Report ---
ED General - General Chief Complaint: OB Problem (<20wks) Stated Complaint: CONCERN Time Seen by Provider: 01/19/19 01:02 Mode of Arrival: Ambulatory Information source: Patient, Relative, [facility] Records Notes: 23-year-old G3, P2 6-week 2-day female presents to the emergency to the emergency department with epigastric abdominal pain that is currently not present. Patient had an outpatient ultrasound today in preparation for a scheduled on 01/22/2019. Patient was told at that time that she had a demise and should come to the emergency department if she experienced any pain. Patient has no lower abdominal pain, vaginal bleeding or vaginal discharge. TRAVEL OUTSIDE OF THE [place] IN LAST 30 DAYS: No COUNTRY TRAVELED TO/FROM: [facility] Onset: This morning Onset/Duration: Gradual, Intermittent, Gone Quality of pain: Burning Severity: Mild Associated symptoms: denies: Chest pain, Productive cough, Fever, Headache, Nausea, Vomiting, Shortness of breath Exacerbated by: Denies Relieved by: Denies Similar symptoms previously: No Recently seen / treated by doctor: No - Related Data Allergies/Adverse Reactions: No Known Allergies Allergy (Verified 11/16/18 23:19) Past Medical History - General Information source: Patient, Relative - Social History Smoking Status: Never Smoker Frequency of alcohol use: None Drug Abuse: None Lives with: Family Family History: Reviewed & Not Pertinent Patient has suicidal ideation: No Patient has homicidal ideation: No - Medical History Medical History: Negative Renal/ Medical History: Denies: Hx Peritoneal Dialysis Past Surgical History: Reports: Other - ear Review of Systems - Review of Systems Notes: REVIEW OF SYSTEMS: CONSTITUTIONAL : Denies fever, chills, or sweats. Denies recent illness. Denies weight loss, recent hospitalizations. EENT: Denies visual changes, eye pain. Denies sore throat, oral lesions, difficulty swallowing. CARDIOVASCULAR: Denies chest pain. Denies palpitations. Denies lower extremity edema. RESPIRATORY: Denies cough. Denies shortness of breath, wheezing. GASTROINTESTINAL: + Epigastric abdominal pain, negative distention. Denies nausea, vomiting, or diarrhea. Denies blood in vomitus, stools, or per rectum. Denies black, tarry stools. Denies constipation. GENITOURINARY: Denies difficulty urinating, painful urination, frequency, blood in urine, or vaginal discharge. MUSCULOSKELETAL: Denies back or neck pain or stiffness. Denies joint pain or swelling. SKIN: Denies rash, lesions or sores. HEMATOLOGIC : Denies easy bruising or bleeding. LYMPHATIC: Denies swollen glands. NEUROLOGICAL: Denies confusion or altered mental status. Denies loss of consciousness. Denies dizziness or lightheadedness. Denies headache. Denies weakness or paralysis. Denies problems difficulty with ambulation, slurred speech. Denies sensory loss, numbness, or tingling. Denies seizures. PSYCHIATRIC: Denies anxiety or stress. Denies depression, suicidal ideation, or homicidal ideation. Denies visual or auditory hallucinations. Physical Exam - Vital signs Vitals: Temp Pulse BP Pulse Ox 98.3 F 66 117/50 L 100 01/18/19 21:35 01/18/19 21:35 01/18/19 21:35 01/18/19 21:35 - Notes Notes: PHYSICAL EXAMINATION: GENERAL: Well-appearing, well-nourished and in no acute distress. HEAD: Atraumatic, normocephalic. EYES: Pupils equal round and reactive to light, extraocular movements intact, conjunctiva are normal. ENT: Nares patent, oropharynx clear without exudates. Moist mucous membranes. NECK: Normal range of motion, supple without lymphadenopathy LUNGS: Breath sounds clear to auscultation bilaterally and equal. No wheezes rales or rhonchi. HEART: Regular rate and rhythm without murmurs ABDOMEN: Soft, nontender, nondistended abdomen. No guarding, no rebound. No masses appreciated. Female : deferred Musculoskeletal: Normal range of motion, no pitting or edema. No cyanosis. NEUROLOGICAL: Cranial nerves grossly intact. Normal speech, normal gait. Normal sensory, motor exams PSYCH: Normal mood, normal affect. SKIN: Warm, Dry, normal turgor, no rashes or lesions noted. Course - Re-evaluation Re-evalutation: 01/19/19 04:01 Laboratory 01/19/19 01/19/19 01/19/19 01:17 01:24 01:24 WBC 6.8 RBC 4.49 Hgb 10.8 L Hct 34.1 L MCV 76 L MCH 24.0 L MCHC 31.6 L RDW 15.7 H Plt Count 300 Seg Neutrophils % 55.2 Lymphocytes % 35.3 Monocytes % 6.8 Eosinophils % 2.2 Basophils % 0.5 Absolute Neutrophils 3.8 Absolute Lymphocytes 2.4 Absolute Monocytes 0.5 Absolute Eosinophils 0.1 Absolute Basophils 0.0 Sodium 141.0 Potassium 3.7 Chloride 103 Carbon Dioxide 22 Anion Gap 16 BUN 15 Creatinine 0.59 Est GFR ( Amer) > 60 Est GFR (Non-Af Amer) > 60 Glucose 83 Calcium 10.2 Total Bilirubin 0.3 Direct Bilirubin 0.3 Neonat Total Bilirubin Not Reportable Neonat Direct Bilirubin Not Reportable Neonat Indirect Bili Not Reportable AST 44 H ALT 84 H Alkaline Phosphatase 74 Total Protein 8.2 Albumin 4.7 Beta HCG, Quant 11713.00 H Total Beta HCG POSITIVE Urine Color YELLOW Urine Appearance CLEAR Urine pH 5.0 Ur Specific [place] 1.023 Urine Protein NEGATIVE Urine Glucose (UA) NEGATIVE Urine Ketones NEGATIVE Urine Blood NEGATIVE Urine Nitrite NEGATIVE Urine Bilirubin NEGATIVE Urine Urobilinogen NEGATIVE Ur Leukocyte Esterase NEGATIVE Urine WBC (Auto) 1 Urine RBC (Auto) 0 Squamous Epi Cells Auto 3 Urine Mucus (Auto) RARE Urine Ascorbic Acid NEGATIVE Transvaginal US 01/19/19 01:02 IMPRESSION: 1. Possible intrauterine gestational sac identified. If this is a gestational sac the estimated gestational age is 6 weeks, 2 days. No pole identified. Differential considerations include early normal , anembryonic , and pseudogestational sac of ectopic . Close continued clinical, laboratory, and sonographic follow-up recommended. Temp Pulse Resp BP Pulse Ox 98.3 F 66 117/50 L 100 01/18/19 21:35 01/18/19 21:35 01/18/19 21:35 01/18/19 21:35 01/19/19 04:01 23-year-old female presents with epigastric abdominal pain. Vital signs reviewed and within normal limits. Patient does not appear toxic or dehydrated. She is in no acute distress. Patient is currently pain-free. Patient has a scheduled on 01/22/2019 but was told to come to the emergency department with any abdominal pain. Patient has no lower abdominal pain, vaginal bleeding. Findings were reviewed with the patient and her who is at the bedside. Patient and has been given copies of today's ultrasound and blood work. Advised to take the reports with them to [facility] on Tuesday. Patient was evaluated and treated as appropriate for the patient's presenting symptoms and complaint, with consideration of any critical or life threatening conditions that may be associated with their obtained history and exam as noted above. All results were discussed with patient and her . patient provided the opportunity to ask questions, and express concerns. Patient was educated on treatments based on their presumed diagnosis as noted above. At this time we will discharge the patient with return precautions and follow-up recommendations. Verbal discharge instructions given a the bedside. Medication warnings reviewed. Patient is in agreement with this plan and has verbalized un derstanding of return precautions. After careful consideration I feel that that patient can be safely discharged from the emergency department, they were advised to followup with a primary care physician in 2-3 days. Dictation on this chart was performed using voice recognition software and may result in unintended grammatical, spelling, syntax or errors. - Vital Signs Vital signs: Temp Pulse Resp BP Pulse Ox 98.3 F 66 117/50 L 100 01/18/19 21:35 01/18/19 21:35 01/18/19 21:35 01/18/19 21:35 - Laboratory Result Diagrams: 01/19/19 01:24 01/19/19 01:24 Laboratory results interpreted by me: 01/19/19 01/19/19 01:24 01:24 Hgb 10.8 L Hct 34.1 L MCV 76 L MCH 24.0 L MCHC 31.6 L RDW 15.7 H AST 44 H ALT 84 H Beta HCG, Quant 59892.00 H - Diagnostic Test Radiology reviewed: Image reviewed, Reports reviewed Discharge - Discharge Clinical Impression: Threatened in early Condition: Good Disposition: HOME, SELF-CARE Instructions: Threatened Miscarriage ([facility])
[2019-01-19 04:04] LABS: LIPASE 165.3 U/L (23-300)
[2019-01-19 04:09] VITALS: BP 106/55
== END 2019-01-19 04:09 | disposition home or self-care (01) ==
LOC: ER 20:55
DX: O20.0 Threatened abortion (principal); O26.891 Other specified pregnancy related conditions, first trimester; R10.13 Epigastric pain; Z3A.01 Less than 8 weeks gestation of pregnancy
CPT/HCPCS: 36415; 76817; 80053; 81001; 83690; 84702; 85025; 93976; 99282

== ENCOUNTER → 2019-01-22 | Outpatient (CLI) | payer MEDICAID | LOC: OD 14:08 | PROVIDERS: ATTEND Obstetrics & Gynecology | DX: O02.1 Missed abortion (principal); Z3A.00 Weeks of gestation of pregnancy not specified | CPT/HCPCS: 36415; 84702 ==

== ENCOUNTER 2019-06-24 20:22 | Emergency (ER) | payer MEDICAID ==
[2019-06-24 20:29] VITALS: BP 110/62
--- NOTE | 2019-06-24 21:44 | ER Document Report ---
ED Medical Screen (RME) - General Chief Complaint: Back Pain Stated Complaint: BACK PAIN Time Seen by Provider: 06/24/19 21:40 Primary Care Provider: HILDA BLAKELY [Primary Care Provider] - Follow up as needed Mode of Arrival: Ambulatory Information source: Patient Notes: 23-year-old female presented to ED for pain in the thoracic area of her back. She states is been hurting off and on since she was 18 years old and she fell. She states for the last month she has been taking a lot of pills and not getting any relief from her back. She states she just started a new job and ever since she injured her back when she was 18 whenever she does a lot of exercises it and increases the pain. 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 Patient is alert oriented respirations regular nonlabored speaking in full sentences. Menstrual cycle started a couple days ago. I have greeted and performed a rapid initial assessment of this patient. A comprehensive ED assessment and evaluation of the patient, analysis of test results and completion of medical decision making process will be conducted by an additional ED providers. TRAVEL OUTSIDE OF THE [place] IN LAST 30 DAYS: No - Related Data Allergies/Adverse Reactions: No Known Allergies Allergy (Verified 11/16/18 23:19) Past Medical History Renal/ Medical History: Denies: Hx Peritoneal Dialysis Past Surgical History: Reports: Other - ear Physical Exam - Vital signs Vitals: Temp Pulse Resp BP Pulse Ox 98.2 F 57 L 18 110/62 99 06/24/19 20:28 06/24/19 20:28 06/24/19 20:28 06/24/19 20:28 06/24/19 20:28 Course - Vital Signs Vital signs: Temp Pulse Resp BP Pulse Ox 98.2 F 57 L 18 110/62 99 06/24/19 20:28 06/24/19 20:28 06/24/19 20:28 06/24/19 20:28 06/24/19 20:28 Doctor's Discharge - Discharge Referrals: HILDA BLAKELY [Primary Care Provider] - Follow up as needed
--- NOTE | 2019-06-24 23:04 | ER Document Report ---
ED General - General Chief Complaint: Back Pain Stated Complaint: BACK PAIN Time Seen by Provider: 06/24/19 21:40 Primary Care Provider: HILDA BLAKELY [Primary Care Provider] - Follow up as needed Mode of Arrival: Ambulatory TRAVEL OUTSIDE OF THE [place] IN LAST 30 DAYS: No - HPI Notes: 23-year-old female presented with back pain. Patient has a history of chronic back pain since some type of injury when she was 18 years old. She states that this is exacerbated whenever she overexerts herself exercises or twists it. 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 Midthoracic, worse with bending and twisting. Moderate intensity, nonradiating, throbbing and aching, sometimes sharp. No associated constitutional symptoms, no numbness or tingling. No other modifying factors, no other associated symptoms, no other provocative or palliative factors. Nonradiating. - Related Data Allergies/Adverse Reactions: No Known Allergies Allergy (Verified 11/16/18 23:19) Past Medical History - General Information source: Patient - Social History Smoking Status: Never Smoker Chew tobacco use (# tins/day): No Frequency of alcohol use: None Drug Abuse: None Family History: Reviewed & Not Pertinent Patient has suicidal ideation: No Patient has homicidal ideation: No - Medical History Notes: Includes chronic intermittent T-spine pain Renal/ Medical History: Denies: Hx Peritoneal Dialysis Past Surgical History: Reports: Other - ear Review of Systems - Review of Systems Notes: Review of systems as in the history of present illness, otherwise negative x 10 systems. Physical Exam - Vital signs Vitals: Temp Pulse Resp BP Pulse Ox 98.2 F 57 L 18 110/62 99 06/24/19 20:28 06/24/19 20:28 06/24/19 20:28 06/24/19 20:28 06/24/19 20:28 - Notes Notes: General: Well devloped, no acute distress. HEENT: Normocephalic, atraumatic. Pupils equal round reactive to light. Mucosa moist. No JVD. Chest: No trauma, normal excursion. Respiratory: Good air exchange, normal excursion. Cardiac: Regular rhythm Abdomen: Soft, benign. Nondistended. Back: No asymmetry or gross abnormality. There is mild midline and parathoracic tenderness of the mid thoracic spine with no skin changes, no significant percussion tenderness. No edema erythema or warmth. Motor: Grossly normal power and tone. Neurologic: Alert, nonfocal. Vascular: Well perfused Skin: No petechiae or purpura Course - Re-evaluation Re-evalutation: 06/24/19 23:02 Patient was evaluated by the [facility] provider prior to my evaluation. Studies / interventions have been ordered by this provider and may still be pending. Well-appearing female with clear evidence of musculoskeletal back pain. [facility] provider to obtain T-spine films which I reviewed, I see no evidence of acute bony abnormality. Discharge home with prescription for diclofenac, Flexeril as needed, advised to follow close with a primary care doctor. - Vital Signs Vital signs: Temp Pulse Resp BP Pulse Ox 98.2 F 57 L 18 110/62 99 06/24/19 20:28 06/24/19 20:28 06/24/19 20:28 06/24/19 20:28 06/24/19 20:28 Discharge - Discharge Clinical Impression: Thoracic myofascial strain Qualifiers: Encounter type: initial encounter Qualified Code(s): S29.019A - Strain of muscle and tendon of unspecified wall of thorax, initial encounter Condition: Stable Disposition: HOME, SELF-CARE Instructions: Muscle Strain ([facility]) Prescriptions: Diclofenac Sodium 75 mg PO Q12 7 Days #14 tablet. Cyclobenzaprine HCl [Flexeril 10 mg Tablet] 10 mg PO TIDP PRN #15 tab NS PRN Reason: Referrals: LOCALMD,NO [Primary Care Provider] - Follow up as needed
--- NOTE | 2019-06-24 23:07 | RADIOLOGY REPORT (SQ) ---
EXAM DESCRIPTION: XR THORACIC SPINE 2 VIEWS COMPLETED DATE/TME: 06/24/2019 21:44 CLINICAL HISTORY: 23 years, Female, chronic pain on menstral cycle COMPARISON: EXAM DESCRIPTION: CLINICAL HISTORY: chronic pain on menstral cycle COMPARISON: None FINDINGS: 2 view(s) submitted. There is mild height loss of the T6 and T7 vertebral body but detail is quite limited. Acuity is indeterminate. There is slight rightward curvature of the spine, with the apex at the T6-7 level. No other Fracture or dislocation is identified. Bone marrow attenuation is unremarkable. No radiopaque foreign body is identified. IMPRESSION: Mild scoliosis resulting from mild compression of T6 and T7, indeterminate acuity. These findings may be chronic. If there is high suspicion for acute fracture, MRI is recommended.
== END 2019-06-24 23:33 | disposition home or self-care (01) ==
LOC: ER 20:22
DX: S29.019A Strain of muscle and tendon of unspecified wall of thorax, initial encounter (principal); X58.XXXA Exposure to other specified factors, initial encounter; G89.29 Other chronic pain; M54.9 Dorsalgia, unspecified
CPT/HCPCS: 72070; 99283